=== PATIENT | female | born 1985 | race Caucasian/White ===

== ENCOUNTER 2017-02-02 16:04 | Emergency (ER) | payer BC ==
[2017-02-02 18:15] VITALS: BP 120/64
--- NOTE | 2017-02-02 20:29 | UC ---
Alethea Cook SooYoung, scribed for Prem Orellana MD on 02/02/17 at 1812 . Lower Extremity/Ankle HPI - HPI Summary HPI Summary: A 32 y/o F presents to [facility] with c/o L hip pain radiating to L buttock and down L thigh onset approx 2 weeks ago. She was in [place] for January 30 and was walking around a lot, since then, she states the pain has been worse, causing her to limp and having difficulty ambulating. She notes today is not the worst day of her pain. Associated sx: LLE numbness. Denies weakness. Pain described as pinching. Alleviating factors: Ibuprofen, ice. Pert PMHx: chronic back pain. She has not had this LLE/hip pain previously. She also notes she recently changed her mattress. - History of Current Complaint Chief Complaint: UCLowerExtremity Stated Complaint: LEG PAIN Time Seen by Provider: 02/02/17 18:01 Hx Obtained From: Patient Hx Last Menstrual Period: 01/26/17 Onset/Duration: Gradual Onset, Lasting Weeks - 2 weeks, worse this past week, Still Present Severity Initially: Moderate Severity Currently: Moderate Pain Intensity: 5 Pain Scale Used: 0-10 Numeric Alleviating Factor(s): Ice, OTC Meds Able to Bear Weight: Yes - Allergies/Home Medications Allergies/Adverse Reactions: Allergies Allergy/AdvReac Type Severity Reaction Status Date / Time No Known Allergies Allergy Verified 02/02/17 16:47 PMH/Surg Hx/FS Hx/Imm Hx Previously Healthy: Yes Respiratory History: Asthma - Surgical History Surgical History: Yes Surgery Procedure, Year, and Place: appy, pneumothorax - Family History Known Family History: Positive: Hypertension - mother Negative: Cardiac Disease, Diabetes - Social History Occupation: Employed Full-time - post doc Lives: With Family Alcohol Use: Rare Substance Use Type: None Smoking Status (MU): Former Smoker Review of Systems Constitutional: Negative Musculoskeletal: Other: - pos: L hip pain Neurological: Numbness - LLE All Other Systems Reviewed And Are Negative: Yes Physical Exam Triage Information Reviewed: Yes Appearance: Well-Appearing, No Pain Distress Vital Signs: Initial Vital Signs Temp 98.0 F 02/02/17 16:39 Pulse 73 02/02/17 16:39 Resp 18 02/02/17 16:39 BP 111/68 07/07/17 16:39 Pulse Ox 100 02/02/17 16:39 Vital Signs Reviewed: Yes Eye Exam: Normal - EOMI, [place] ENT: Positive: Normal ENT inspection Neck: Positive: Supple, Nontender Respiratory: Positive: Lungs clear, Normal breath sounds Cardiovascular: Positive: RRR Abdomen Description: Positive: Nontender, Soft Musculoskeletal: Positive: Other: - Back is nontender; mildly tender to L SI joint down to buttock; tenderness at L greater trochantor and posterior to that. Strength 5/5 bilat in LE. Pain is worse with plantar flexion and dorsal flexion, and with extension flexion of knee and hip. Neurological Exam: Normal - A&Ox3; sensory/motor intact Psychological Exam: Normal - mood/affect appropriate Skin Exam: Normal - warm, dry, color reflects adequate perfusion - Additional Comments PE: back nontender; mildly tender to L SI joint down to buttock; tenderness L graeter trocantor and posterior to that. Strength 5/5 bilat in LE. Pain is worse with plantar flexion and dorsar flexion and extension/flex of knee and hip. Lower Extremity Course/Dx - Course Course Of Treatment: Pt medications reviewed this visit. Normal BP reading and no follow-up instructions required. LEFT SCIATICA VERSES LEFT GREATER TROCHANTERIC BURSITIS. NSAIDS/ICE/REST, F/U PMD - Differential Dx/Diagnosis Provider Diagnoses: LEFT SCIATICA Discharge - Discharge Plan Condition: Stable Disposition: HOME Prescriptions: Ibuprofen TAB* [Motrin TAB* 600 MG] 600 mg PO Q8H PRN #30 tab PRN Reason: Pain Patient Education Materials: Hip Bursitis (ED), Sciatica (ED), Lower Back Exercises (ED) Referrals: [facility] [Outside] Additional Instructions: FOLLOW UP WITH YOUR DOCTOR. GET RECHECKED FOR ANY WORSENING OF YOUR CONDITION; WEAKNESS, NUMBNESS OR QUESTIONS OR CONCERNS. The documentation as recorded by the Alethea willis SooYoung accurately reflects the service I personally performed and the decisions made by me, Prem Orellana MD.
== END 2017-02-02 18:20 | disposition home or self-care (01) ==
LOC: UCEAST 16:04 → MERGE 16:04 → UCEAST 18:20
DX: M54.32 Sciatica, left side (principal); Z87.891 Personal history of nicotine dependence
CPT/HCPCS: 99202; G0463

== ENCOUNTER 2017-04-03 16:32 | Emergency (ER) | payer BC ==
[2017-04-03] MEDS ORDERED: Chlorpheniramine Maleate TAB* 4 MG PO ONE (18:27)
[2017-04-03 20:14] VITALS: BP 122/74
--- NOTE | 2017-04-04 01:17 | ED ---
Skin Complaint - HPI Summary HPI Summary: 32 female presents to ED with complaints of having hives on her trunk and chest that began 3 days ago and appears to be spreading. Patient states she is 5 weeks and was unsure of what was safe to take. She has not had her appointment with OBGYN yet, it is scheduled in 2 weeks. Patient does not know what caused the rash. Denies new use of lotion, detergent, soaps, and foods. Patient does admit to using a new brand of pre-radha vitamins. She also admits to applying baby oil to chest and trunk ~ 5 days ago for a couple of days because she was unsure if her other body lotion was safe to use. Has not taken any medication. Admits to rash being worse at times and itchy. Non raised and no discharge. Is not painful. No hx of MRSA. Rest of skin exam normal. No other complaints and no PMHx. Denies difficulty breathing, chest pain/tightness and throat swelling. - History of Current Complaint Chief Complaint: EDRashSkinAbscess Time Seen by Provider: 04/03/17 17:55 Stated Complaint: ALLERGIC REACTION Hx Obtained From: Patient Hx Last Menstrual Period: 08/27/13 Onset/Duration: Started Days Ago - 3, Still Present, Worse Since Skin Exposure Onset/Duration: Days Ago - 3 Timing: Constant Current Severity: None Pain Intensity: 0 Pain Scale Used: 0-10 Numeric Skin Location: Chest, Abdomen, Other: - some on back Character: Pruritus, Hives, Redness Aggravating Symptom(s): Nothing Alleviating Symptom(s): Nothing Associated Signs & Symptoms: Rash - Allergy/Home Medications Allergies/Adverse Reactions: Allergies Allergy/AdvReac Type Severity Reaction Status Date / Time No Known Allergies Allergy Verified 08/18/14 16:11 PMH/Surg Hx/FS Hx/Imm Hx Endocrine/Hematology History: Denies: Hx Diabetes Cardiovascular History: Denies: Hx Hypertension Respiratory History: Reports: Hx Asthma - Surgical History Surgery Procedure, Year, and Place: appendectomy. penumothorax - Immunization History Immunizations Up to Date: Yes Infectious Disease History: No Infectious Disease History: Denies: History Other Infectious Disease, Traveled Outside the [place] in Last 30 Days - Family History Known Family History: Positive: Hypertension - mother Negative: Cardiac Disease, Diabetes - Social History Alcohol Use: None Substance Use Type: Reports: None Smoking Status (MU): Never Smoked Tobacco Review of Systems Constitutional: Negative Cardiovascular: Negative Respiratory: Negative Gastrointestinal: Negative Positive: Rash All Other Systems Reviewed And Are Negative: Yes Physical Exam Triage Information Reviewed: Yes Vital Signs On Initial Exam: Initial Vitals Temp Pulse Resp Pulse Ox 97.9 F 87 20 98 04/03/17 16:41 04/03/17 16:41 04/03/17 16:41 04/03/17 16:41 Vital Signs Reviewed: Yes Appearance: Positive: Well-Appearing, No Pain Distress, Well-Nourished Skin: Positive: Warm, Skin Color Reflects Adequate Perfusion, Dry, Erythema @ - urticaric like rash over trunk and chest, blanchable and pruritic. non raised, non tender and no discharge. Negative: Cold, Numb, Jaundiced, Pale Head/Face: Positive: Normal Head/Face Inspection Eyes: Positive: Conjunctiva Clear ENT: Positive: Hearing grossly normal, Pharynx normal Neck: Positive: Supple, Nontender Respiratory/Lung Sounds: Positive: Clear to Auscultation, Breath Sounds Present. Negative: Decreased Breath Sounds, Rales, Rhonchi, Wheezes Cardiovascular: Positive: Normal, RRR, Pulses are Symmetrical in both Upper and Lower Extremities. Negative: Murmur, Rub Abdomen Description: Positive: Nontender, Soft, Other: - rash as noted above Bowel Sounds: Positive: Present Musculoskeletal: Positive: Normal, Strength/ROM Intact Neurological: Positive: Normal, Sensory/Motor Intact, Alert, Oriented to Person Place, Time, Normal Gait Psychiatric: Positive: Affect/Mood Appropriate Diagnostics - Vital Signs Vital Signs Temp Pulse Resp BP Pulse Ox 04/03/17 20:09 98.1 F 81 16 122/74 04/03/17 17:41 97.8 F 84 18 123/76 98 04/03/17 16:41 97.9 F 87 20 98 - Laboratory Lab Statement: Any lab studies that have been ordered have been reviewed, and results considered in the medical decision making process. Course/Dx - Course Course Of Treatment: appears patient is suffering from urticaria. possible etiology between new brand pre natals and use of baby oil. Patient did discontinue both 2 days ago. Told to use normal daily lotion and change brand of pre radha back to orginial. spoke with Dr Mcdonnell who stated any anti histamine is safe to use in first trimester for short term use for urticaria. Given chlortrimenton, as it was stated to be safest according to UTD. Take for the next 7 days as directed. Watch for other triggers that are causing rash. Follow up PC/OBGYN and return sooner if symptoms worsen or new symptoms develop. Patient aware or worsening signs and symptoms. Do not use new soaps, lotions, or detergents. - Differential Diagnoses - Skin Complaint Differential Diagnoses: Allergic Reaction, Cellulitis, Contact Dermatitis, Local Allergic Reaction, MRSA, Urticaria - Diagnoses Provider Diagnoses: Urticaria Discharge - Discharge Plan Condition: Stable Disposition: HOME Prescriptions: Chlorpheniramine Maleate TAB* [Chlortrimeton TAB*] 4 mg PO Q4H #21 tab Patient Education Materials: Urticaria (ED) Referrals: Non Staff,Doctor [Primary Care Provider] - Additional Instructions: Take prescribed medication as directed. Discontinue new brand of vitamins and use of baby oil. Try not using new soaps, lotions, detergents. Follow up with OBGYN. Return if symptoms worsen or new symptoms develop.
== END 2017-04-03 20:09 | disposition home or self-care (01) ==
LOC: ED 16:32
DX: L50.9 Urticaria, unspecified (principal)
CPT/HCPCS: 99282; A9270-GY

== ENCOUNTER 2017-11-29 09:45 | Inpatient (IN) | payer BC ==
[2017-11-29] MEDS ORDERED: Promethazine INJ(RESTRICTED)* 25 MG/ML 1 ML VIAL IV ONE (10:56)
[2017-11-29] MEDS ORDERED: Nalbuphine* 20 MG/ML 1 ML VIAL IV ONE (10:56)
--- NOTE | 2017-11-29 11:05 | HP ---
General Information - General Information Maternal Age: 32 Grav: 1 Para: 0 SAB: 0 IEA: 0 Estimated Due Date: 11/27/17 Determined By: LMP Gestational Age in Weeks and Days: 40 Weeks and 2 Days Maternal Blood Type and Rh: O Positive - Results this Serology/RPR Result: Non-Reactive Rubella Result: Immune HBsAg Result: Negative HIV Result: Negative GBS Culture Result: Positive Past Medical History Pertinent Past Medical History: See Records - asthma Pertinent Past Surgical History: See Records - appendectomy 2011; chest tube insertion 2005 Pertinent Family History: See Records - Mother: hypertension Review of Systems Constitutional: Uncomfortable CV Complaint: No Respiratory: Shortness of Breath: No Gastrointestinal: No Nausea/Vomiting Genitourinary: No Bleeding, No Leaking Fluid Musculoskeletal: Contractions Neurological: No Headache, No Visual Changes Movement: Normal Exam Allergies/Adverse Reactions: Allergies No Known Allergies Allergy (Verified 11/28/17 21:39) T 98.6; BP 131/86; P 103; R18 - Measurements Height: 5 ft 5.75 in Weight: 189 lb Weight in lbs: 189 Body Mass Index (BMI): 30.7 Pre- Weight: 147 lb 11.355 oz Weight Gained This : 41.290 lbs and 0.005 ozs - Exam Abdomen: No Upper Quadrant Pain Breast: Breast Exam Deferred CVA: No CVA Tenderness Extremities: Edema - mild bilateral pedal edema Heart: Normal Rhythm/Heart Sounds HEENT: No Significant Findings Lungs: Clear Bilaterally Rectal: Rectal Exam Deferred Reflexes: DTR 2+ Thyroid: No Thyromegaly - Abdominal Exam Abdomen Exam: Non-Tender, Fundal Height Consistent with Dates - Ultrasound/Biophysical Profile Ultrasound Status: Not Done Targeted Exam Findings Cervical Exam: 2cm Effacement: 100% Station: 0 Presenting Part: Vertex Membrane Status: Intact Bleeding/Discharge: None EFM Findings - External Monitor Findings Baseline Heart Rate: 145 External Monitor Findings: Accelerations Present, No Pattern of Variable or Late Decelerations, Variability Moderate Contractions: Regular - every 5 minutes, Mild, 45-90 Seconds Assessment/Plan - Obstetrical Risk Factors Obstetrical Risk Factors: GBS Positive - Plan Plan: Early Labor - Date/Time of Admission Date of Admission: 11/29/17 Time of Admission: 11:06
[2017-11-29 11:25] LABS: ABS Basophils 0.1 10^3/ul (0-0.2); ABS Eosinophils 0.1 10^3/ul (0-0.6); ABS Lymphocytes 1.4 10^3/ul (1.0-4.8); ABS Neutrophils 10.4 10^3/ul (1.5-7.7); ABS Nucleated RBC 0 10^3/ul; Eosinophil % 0.8 % (0-6); Hematocrit 39 % (35-47); Hemoglobin 13.1 g/dl (12.0-16.0); Mean Corpuscular HGB Conc 34 g/dl (31-36); Mean Corpuscular Hemoglobin 29 pg (27-31); Mean Corpuscular Volume 85 fL (80-97); Mean Platelet Volume 8.4 um3 (7.4-10.4); Nucleated Red Blood Cells % 0.1; Platelet Count 357 10^3/ul (150-450); Red Cell Distribution Width 14 % (10.5-15); White Blood Count 13.1 10^3/ul (3.5-10.8)
[2017-11-29] MEDS ORDERED: Heparin VIAL(*) 5000 UNITS/ML VIAL (FIVE THOUSAND) SUBCUT SCH (14:00)
--- NOTE | 2017-11-29 15:22 | PN ---
Progress Note - Progress Note Date of Service: 11/29/17 SOAP: Subjective: Pt arrived to L & D with contractions 5 minutes apart. Discharged home last night with no cervical change. Patient in prodromal labor 24 hours +. Slept in 30 minute increments overnight. Appears tired. Mild discomfort observed with contractions. No interest in discharge home to await active labor. Discussed risk/benefit of expectant management vs therapeutic rest vs augmentation. Desires therapeutic rest. Objective: See admitting H & P. Assessment: 32yo G1 at 40 2/7 with IUP, prodromal labor, GBS+, IBOW Plan: Iv and labs ordered. Nubain/phenergan administered at 1222. Augmentin prn.
[2017-11-29] MEDS ORDERED: Penicillin G Potassium IV* 5,000,000 UNITS in NS 0.9% 100 ML* 100 ML IVPB ONE (17:19)
[2017-11-29] MEDS ORDERED: Oxytocin in LR* 20 UNITS/1,000 ML BAG IVPB SCH (18:00)
[2017-11-29] MEDS ORDERED: OBEPIDURAL* 250 ML EPIDURAL ONE (21:01)
[2017-11-29] MEDS ORDERED: fentaNYL* 50 MCG/ML 2 ML VIAL (100 MCG VIAL) ONE (21:05)
[2017-11-29] MEDS ORDERED: Sodium Citrate/Citric Acid* 15 ML UDC PO PRN (21:39)
[2017-11-29] MEDS ORDERED: Phenylephrine IV* 40 MCG/ML 10 ML SYRINGE IV PUSH PRN ×2 (21:39)
[2017-11-29] MEDS ORDERED: Famotidine TAB* 20 MG PO PRN (21:39)
[2017-11-29] MEDS ORDERED: OBEPIDURAL* 250 ML EPIDURAL SCH (22:00)
[2017-11-29] MEDS ORDERED: Penicillin G Potassium IV* 2,500,000 UNITS in NS 0.9% 100 ML* 100 ML IVPB SCH (22:00)
[2017-11-30] MEDS ORDERED: Misoprostol TAB* 200 MCG ONE (04:01)
[2017-11-30] MEDS ORDERED: Witch Hazel PAD* JAR TOPICAL PRN (04:03)
[2017-11-30] MEDS ORDERED: Ibuprofen TAB* 600 MG PO PRN (04:03)
[2017-11-30] MEDS ORDERED: Acetaminophen TAB* 325 MG PO PRN (04:03)
[2017-11-30] MEDS ORDERED: Glycerin ADULT SUPP PR PRN (04:03)
[2017-11-30] MEDS ORDERED: Dibucaine 1% 28.35 GM TUBE PR PRN (04:03)
[2017-11-30] MEDS ORDERED: Simethicone TAB* 80 MG TAB.CHEW PO SCH (08:30)
[2017-11-30] MEDS: Docusate CAP* 100 MG PO SCH ×3 (09:28→21:06)
[2017-11-30] MEDS ORDERED: Hydrocortisone 1% CREAM* 30 GM TUBE TOPICAL PRN (16:58)
[2017-12-01 06:16] LABS: ABS Basophils 0 10^3/ul (0-0.2); ABS Eosinophils 0.4 10^3/ul (0-0.6); ABS Lymphocytes 2.2 10^3/ul (1.0-4.8); ABS Monocytes 0.8 10^3/ul (0-0.8); ABS Neutrophils 8.1 10^3/ul (1.5-7.7); ABS Nucleated RBC 0 10^3/ul; Eosinophil % 3.1 % (0-6); Hematocrit 32 % (35-47); Hemoglobin 10.8 g/dl (12.0-16.0); Lymphocyte % 18.9 % (25-47); Mean Corpuscular HGB Conc 34 g/dl (31-36); Mean Corpuscular Hemoglobin 29 pg (27-31); Mean Corpuscular Volume 86 fL (80-97); Mean Platelet Volume 8.3 um3 (7.4-10.4); Nucleated Red Blood Cells % 0; Platelet Count 300 10^3/ul (150-450); Red Blood Count 3.75 10^6/ul (4.0-5.4); Red Cell Distribution Width 14 % (10.5-15); White Blood Count 11.5 10^3/ul (3.5-10.8)
--- NOTE | 2017-12-01 10:41 | PTEDU ---
Patient Name: JAMESON VILLALTA JAMESON VILLALTA selected video: Never Ever Shake a Baby to view on 12/01/2017 at 10:40:24 AM from [id number]
--- NOTE | 2017-12-01 10:50 | PTEDU ---
Patient Name: JAMESON VILLALTA JAMESON VILLALTA selected video: Follow Me Mum: [facility] to view on 12/02/19 [facility] 10:49:27 [id number]
[2017-12-01] MEDS: Ferrous Gluconate TAB* 324 MG TAB PO SCH ×2 (19:29→19:30)
[2017-12-01] MEDS: Docusate CAP* 100 MG PO SCH ×2 (19:29→20:44)
[2017-12-02 07:52] VITALS: BP 143/82
[2017-12-02] MEDS: Docusate CAP* 100 MG PO SCH (09:02)
== END 2017-12-02 11:25 | disposition home or self-care (01) | DRG 560 ==
LOC: MCHOBOUT 09:45 → MCHOB 10:42
PROVIDERS: ADMIT Midwife; ATTEND Midwife
PROC: 10E0XZZ Delivery of Products of Conception, External Approach (ICD-10-PCS; principal; 2017-11-30)
PROC: 0KQM0ZZ Repair Perineum Muscle, Open Approach (ICD-10-PCS; 2017-11-30)
PROC: 10907ZC Drainage of Amniotic Fluid, Therapeutic from Products of Conception, Via Natural or Artificial Opening (ICD-10-PCS; 2017-11-30)
DX: O48.0 Post-term pregnancy (principal); O99.824 Streptococcus B carrier state complicating childbirth; O70.1 Second degree perineal laceration during delivery; Z3A.40 40 weeks gestation of pregnancy; Z37.0 Single live birth
CPT/HCPCS: 36415; 85025; 86850; 86900; 86901; A9270-GY; J2300; J2540; J2550; J3010

== ENCOUNTER 2018-06-30 08:24 | Emergency (ER) | payer BC ==
[2018-06-30 09:53] VITALS: BP 122/60
--- NOTE | 2018-06-30 17:15 | ED ---
Lower Extremity - HPI Summary HPI Summary: Patient is a 33-year-old female who presents emergency department for right knee pain since yesterday. Patient states she was walking up steps when she developed pain to her right knee. Pain is worse with ambulation and extending knee. Patient states she has had injuries to knee in the past. Symptoms are mild in severity. Has not taken any [id number] analgesics. - History of Current Complaint Chief Complaint: EDExtremityLower Stated Complaint: RIGHT KNEE INJURY Time Seen by Provider: 06/30/18 08:35 Hx Obtained From: Patient Hx Last Menstrual Period: 08/27/13 Pain Intensity: 4 Pain Scale Used: 0-10 Numeric - Allergies/Home Medications Allergies/Adverse Reactions: Allergies Allergy/AdvReac Type Severity Reaction Status Date / Time No Known Allergies Allergy Verified 06/30/18 08:27 PMH/Surg Hx/FS Hx/Imm Hx Previously Healthy: Yes Endocrine/Hematology History: Denies: Hx Diabetes Cardiovascular History: Denies: Hx Hypertension Respiratory History: Reports: Hx Asthma - Surgical History Surgery Procedure, Year, and Place: appendectomy. penumothorax Infectious Disease History: No Infectious Disease History: Denies: History Other Infectious Disease, Traveled Outside the [place] in Last 30 Days - Family History Known Family History: Positive: Hypertension - mother Negative: Cardiac Disease, Diabetes - Social History Occupation: Employed Full-time Lives: With Family Alcohol Use: None Substance Use Type: Reports: None Smoking Status (MU): Never Smoked Tobacco Review of Systems Positive: Other - Right knee pain Neurological: Negative Negative: Weakness, Paresthesia, Numbness All Other Systems Reviewed And Are Negative: Yes Physical Exam Triage Information Reviewed: Yes Vital Signs On Initial Exam: Initial Vitals Temp Pulse Resp BP Pulse Ox 97.8 F 87 14 120/59 97 06/30/18 08:28 06/30/18 08:28 06/30/18 08:28 06/30/18 08:28 06/30/18 08:28 Vital Signs Reviewed: Yes Appearance: Positive: Well-Appearing - Patient lying in bed in no acute distress. Skin: Positive: Warm, Dry Head/Face: Positive: Normal Head/Face Inspection Eyes: Positive: Normal, EOMI Neck: Positive: Supple Musculoskeletal: Positive: Other - Small effusion and pain noted over the medial aspect of the right knee. No overlying erythema or increased warmth. Able to fully flex and extend with pain. No increased laxity. No proximal or distal injuries. Neurological: Positive: Normal, CN Intact II-III Diagnostics - Vital Signs Vital Signs Temp Pulse Resp BP Pulse Ox 06/30/18 09:52 97.8 F 86 16 122/60 98 06/30/18 08:28 97.8 F 87 14 120/59 97 - Laboratory Lab Statement: Any lab studies that have been ordered have been reviewed, and results considered in the medical decision making process. Lower Extremity Course/Dx - Course Course Of Treatment: Patient presenting with right knee pain. She is small effusion on exam and x-ray is consistent with effusion without fracture dislocation, reading per radiology. Deyvi wrap was placed. She declines crutches. Advised anti-inflammatory for pain as directed. Okay in breast- feeding. To ice and elevate. To call the orthopedic clinic for further evaluation if pain persists. Activity as tolerated. Patient understands and agrees with plan. - Diagnoses Differential Diagnosis/HQI/PQRI: Positive: Arthritis, Contusion, Fracture ( Closed), Sprain, Strain Provider Diagnoses: Knee effusion Discharge - Sign-Out/Discharge Documenting (check all that apply): Patient Departure - Discharge Plan Condition: Good Disposition: HOME Patient Education Materials: Swollen Knee Joint (ED), Knee Pain (ED) Referrals: Non Staff,Doctor [Medical Doctor] - Iva Alex MD [Medical Doctor] - Additional Instructions: Call the orthopedic clinic tomorrow to schedule a follow up appointment if symptoms persist Ice and elevate intermittently Okay to take ibuprofen as directed while breast feeding for pain and swelling Activity as tolerated Return to ER if symptoms change or worsen - Billing Disposition and Condition Condition: GOOD Disposition: Home
== END 2018-06-30 09:52 | disposition home or self-care (01) ==
LOC: ED 08:24
DX: M25.461 Effusion, right knee (principal); M25.561 Pain in right knee
CPT/HCPCS: 99282